=== PATIENT | male | born 1980 | race Two or more races ===

== ENCOUNTER 2019-10-06 09:46 | Emergency (ER) | payer BC ==
[~2019-10-06] VITALS: Ht 167.6 cm; Wt 65.3 kg
--- NOTE | 2019-10-06 09:58 | NUR ---
dr adames at bedside for eval.
[2019-10-06] MEDS ORDERED: IBUPROFEN 600 MG TABLET PO ONE ×2 (10:00→10:10)
--- NOTE | 2019-10-06 10:09 | NUR ---
radiology at bedside for L ankle xray.
--- NOTE | 2019-10-06 10:26 | NUR ---
Patient discharged to home in stable condition. Written and verbal after care instructions given. Patient verbalizes understanding of instruction.
[2019-10-06 10:27] VITALS: BP 119/69
== END 2019-10-06 10:30 | disposition home or self-care (01) ==
LOC: ER 10:00
DX: S93.492A Sprain of other ligament of left ankle, initial encounter (principal); W01.0XXA Fall on same level from slipping, tripping and stumbling without subsequent striking against object, initial encounter; Y93.31 Activity, mountain climbing, rock climbing and wall climbing; Y92.89 Other specified places as the place of occurrence of the external cause; Y99.8 Other external cause status
CPT/HCPCS: 73610-TC

== ENCOUNTER 2019-11-26 10:34 | Emergency (ER) | payer BC ==
[~2019-11-26] VITALS: Ht 170.2 cm; Wt 65.3 kg
[2019-11-26 10:36] VITALS: BP 120/73
== END 2019-11-26 11:36 | disposition home or self-care (01) ==
LOC: ER 10:41
DX: K64.5 Perianal venous thrombosis (principal)

== ENCOUNTER 2019-11-28 16:41 | Emergency (ER) | payer BC ==
[~2019-11-28] VITALS: Ht 170.2 cm; Wt 65.3 kg
[2019-11-28 16:51] VITALS: BP 116/72
--- NOTE | 2019-11-28 18:28 | NUR ---
Patient discharged to home in stable condition. Written and verbal after care instructions given. Patient verbalizes understanding of instruction.
== END 2019-11-28 18:28 | disposition home or self-care (01) ==
LOC: ER 16:44
DX: K64.8 Other hemorrhoids (principal); K62.5 Hemorrhage of anus and rectum

== ENCOUNTER 2020-02-19 00:20 | Emergency (ER) | payer BC ==
[~2020-02-19] VITALS: Ht 170.2 cm; Wt 65.3 kg
[2020-02-19 00:37] VITALS: BP 138/63
[2020-02-19] MEDS ORDERED: predniSONE 20 MG TABLET ONE (01:35)
[2020-02-19] MEDS ORDERED: predniSONE 20 MG TABLET PO ONE (02:00)
== END 2020-02-19 01:40 | disposition home or self-care (01) ==
LOC: ER 00:25
DX: L23.7 Allergic contact dermatitis due to plants, except food (principal); Z60.2 Problems related to living alone
CPT/HCPCS: 99283; J7512